=== PATIENT | male | born 1955 | race Caucasian/White ===

== ENCOUNTER 2020-01-19 11:16 | Outpatient (CLI) | payer MEDICARE, SELFPAY ==
--- NOTE | 2020-01-19 11:00 | XR_ITS ---
WS: [id number] PROCEDURE: XR chest 2V* [id number] CLINICAL INFORMATION: tobacco abuse COMPARISON: None. FINDINGS: Heart: Normal cardiac silhouette. Lungs: Moderate chronic emphysematous changes. Patchy micronodular infiltrate in right upper lobe wit h suggestion of cystic change or bronchiectasis. This can be further evaluated with CT. Lung bases ar e well aerated. Bones: Normal visualized bony structures. XR/XR chest 2V* [id number] IMPRESSION: Patchy micronodular infiltrate with cystic change or bronchiectasis in the righ t upper lobe. Recommend further evaluation with CT.
--- NOTE | 2020-01-19 11:30 | XR_ITS ---
WS: [id number] THORACIC SPINE TECHNIQUE: 3 views of the thoracic spine CLINICAL INFORMATION: back pain COMPARISON: None. FINDINGS: Mild thoracic curve convex left. Chronic anterior wedging in the mid thoracic spine. Osteopenia. No a cute appearing thoracic compression fractures. Grade 1 anterolisthesis C5 on C6 in the cervical spine . XR/XR thoracic spine 2V [id number] IMPRESSION: No acute thoracic spine findings.
== END 2020-01-19 11:17 | disposition home or self-care (01) ==
LOC: RADWPI 11:19
PROVIDERS: Family Provider Nurse Practitioner Family; PCP Nurse Practitioner Family; Visit Provider Nurse Practitioner Family
DX: R93.89 Abnormal findings on diagnostic imaging of other specified body structures (principal); M54.9 Dorsalgia, unspecified
CPT/HCPCS: 71046; 72070

== ENCOUNTER 2020-02-19 10:27 | Outpatient (CLI) | payer MEDICARE, SELFPAY ==
--- NOTE | 2020-02-19 14:11 | PFTS_ITS ---
Date of Study:02/19/20 Date of Dictation: MECHANICS: Forced vital capacity (FVC) is normal. Forced expiratory volume in one second (FEV1) is normal. FEV1/FVC is normal. FLOW VOLUME LOOP: Mild scooping. LUNG VOLUMES: Not performed DIFFUSING CAPACITY FOR CARBON MONOXIDE: Normal INTERPRETATION: The pulmonary function tests are normal. There is likely small airways disease as evidenced by scooping of the flow volume loop. Gas exchange (DLCO) is normal. MTDD
== END 2020-02-19 10:28 | disposition home or self-care (01) ==
LOC: RT 10:33
PROVIDERS: Family Provider Nurse Practitioner Family; PCP Nurse Practitioner Family; Visit Provider Internal Medicine Critical Care Medicine
DX: R91.8 Other nonspecific abnormal finding of lung field (principal)
CPT/HCPCS: 94010; 94729

== ENCOUNTER 2020-03-15 10:17 | Day surgery (SDC) | payer MEDICARE, SELFPAY ==
[2020-03-15] VITALS (7 sets, daily range): BP systolic 118–166; BP diastolic 56–82; PULSE 76–85; RESP 16–25; TEMP 36.2–36.6; O2SAT 94–99
[2020-03-15] MEDS: sodium chloride 0.9% 1,000 ML 30 ML IV (10:43)
[2020-03-15 10:44] LABS: Glucose Point of Care 119 mg/dL (70-110)
--- NOTE | 2020-03-15 11:07 | ANES.PREANE2 ---
Pre-Anesthetic Assessment Pre-Anesthetic Assessment: Height/Weight: Height 1.83 m Weight 83.915 kg Temp Pulse Resp BP Pulse Ox 97.8 F 79 18 166/82 99 03/15/20 10:33 03/15/20 10:33 03/15/20 10:33 03/15/20 10:33 03/15/20 10:33 Preop Diagnosis: Lung cancer Proposed Procedure: Operation Date: 03/15/20 12:00 Proposed Procedures p Ebus(Not Applicable) - Bipinna Borrero MD Last intake: Intake Last Liquid Date 03/14/20 Last Liquid Time 19:00 Last Solid Date 03/14/20 Last Solid Time 19:00 Social: Social History: Tobacco and No alcohol Exam: Pre-Anes Outpt Exam: alert, oriented x 3, clear to auscultation bilaterally and regular rate & rhythm Airway: Submandibular: WNL Cervical ROM: WNL MP: 2 Dentition: Full (dentures) History/ROS: No significant history except as noted Pulmonary: Comments: lung mass CV/HEM: CV/HEM: HTN : : None reported Hepatic: Hepatic: None reported GI: GI: GERD (occ) Metabolic: Metabolic: DM Musc/skel: Musc/skel: None reported Neuropsych: Neuropsych: None reported Anesthetic Plan: ASA status: 2 Anesthesia: Anesthesia Evaluation and General Risk of > 500 ml blood loss (7ml/kg in children): No Meds/Allergies Current Medications: Current Medications Generic Name Dose Route Start Last Admin Trade Name Freq PRN Reason Stop Dose Admin Sodium Chloride 1,000 mls @ 30 ml s/hr 03/15/20 09:15 03/15/20 10:43 Sodium Chloride 0.9% IV 03/16/20 09:14 30 mls/hr .Q24H RAJWINDER Administration PFSH Anesthesia PFSH: Medical History Diabetes type 2, controlled Essential hypertension Social History Smoking and tobacco status: current every day smoker cigarettes Packs smoked per day: 0.5 Years cigarettes smoked: 51 [ Other cigarette details: 1 PPD x 51 Year HX ] Quit status (tobacco): considering quitting Alcohol intake: never Lives independently: Yes Household members: significant other Marital status: Single Current occupational status: employed Current occupational exposures/hazards: No History of recent travel: No Current gender identity: Male Data Anesthesia Other Labs: Laboratory Results - last 48 hr 03/15/20 10:41 POC Glucose 119 Cardiac Studies: No Data to Display
--- NOTE | 2020-03-15 11:57 | W.PM.OPSUD ---
Surgery/Procedure H&P Update DATE OF PROCEDURE: March 15, 2020 DATE H&P PERFORMED: 03/07/20 H&P UPDATE INFORMATION: I have reviewed H&P completed within last 30 days, I have examined patient prior to procedure and No changes to prior documentation PREOP DIAGNOSIS: Lung cancer PRIMARY INDICATION FOR PROCEDURE: Lung cancer PLANNED PROCEDURE: Bronchoscopy with inspection of the airway, possible endobronchial and transbronchial biopsies, endobronchial sound guided transbronchial needle aspiration of lymph nodes. Operation Date: 03/15/20 12:00 Proposed Procedures p Ebus(Not Applicable) - Iqra Borrero MD
[2020-03-15] MEDS: lidocaine 1% INJ 20 mL XX (12:26)
--- NOTE | 2020-03-15 13:19 | SUR.OPER ---
EBUS BALLOON REMOVED AND INTACT
--- NOTE | 2020-03-15 13:23 | PM.OP ---
Operative Report Date of procedure: March 15, 2020 Pre-op Diagnosis: Lung cancer Post-op diagnosis: same Brief History: 64-year-old gentleman with suspected primary lung cancer coming in for bronchoscopic evaluation. Procedure: Name of the procedure: Bronchoscopy with inspection of the airway, endobronchial ultrasound-guided transbronchial needle aspiration of lymph nodes and control of bleeding. Indication: Metastatic lung cancer Anesthesia: General anesthesia. Local anesthesia: The olegario in the right and left mainstem bronchi were anesthetized with 1% lidocaine, 3 mL. Description of the procedure: The procedure was explained to the patient and the consent was obtained. The patient was brought to the OR. The patient underwent endotracheal intubation for general anesthesia. Following induction of general anesthesia, the bronchoscope was advanced through the ET tube. The lower trachea appeared to be normal. The olegario was sharp. The olegario, the right and left mainstem bronchi are anesthetized with 1% lidocaine. In a systematic manner bilateral bronchial tree was then examined. The bronchoscope was advanced into the left mainstem bronchus. There was no significant erythema or cobblestoning, mild mucus noted. The left upper lobe, lingula and left lower lobe bronchi were examined up to the third subsegmental level and no abnormalities were identified. The bronchoscope was then introduced into the right mainstem bronchus. The right upper lobe, right middle lobe and right lower lobe bronchi were examined up to the third subsegmental level and no abnormalities were identified. There was mild mucus throughout the airways. The endobronchial ultrasound was introduced through the ET tube. Right hilar lymphadenopathy was identified with the ultrasound. Fine-needle aspiration was performed from 10 R and station 7 lymph nodes. Samples: 1. The transbronchial fine needle aspiration of the aforementioned lymph node groups were sent for cytology. Complications: There was no immediate complications. The patient was extubated and brought to the PACU in stable condition.
--- NOTE | 2020-03-15 13:26 | SUR.PHASEI ---
1324 PATIENT TO PACU FROM OR. RR EVEN AND UNLABORED. DRY COUGH NOTED. SPO2 96% ON RA. PATIENT DENIES PAIN.
--- NOTE | 2020-03-15 13:43 | SUR.PHASEI ---
1340 PATIENT TO OPS. DENIES PAIN. NO DISTRESS. RR EVEN AND UNLABORED.
--- NOTE | 2020-03-24 13:13 | PTH.EBUS ---
Endobronchial Ultrasound Speicmen(s): Lymph node 10 R Gross: 1.5 ml red cloudy particles, fluid Preliminary Impression: Large atypical cells with cartilage. Material sent for cell block. - Specimen Information Pathologist: Florence Fierro Date: 03/15/20 Time Received: 12:45 Time Reported: 13:00 Pathology Specimen Reported to: Dr. Iqra Borrero
== END 2020-03-15 14:10 | disposition home or self-care (01) ==
PROVIDERS: PCP Nurse Practitioner Family; Visit Provider Internal Medicine Critical Care Medicine
PROC: BB4BZZZ Ultrasonography of Pleura (ICD-10-PCS; principal; 2020-03-15 12:00)
DX: C34.90 Malignant neoplasm of unspecified part of unspecified bronchus or lung (principal); I10 Essential (primary) hypertension; E11.9 Type 2 diabetes mellitus without complications; Z79.84 Long term (current) use of oral hypoglycemic drugs; F17.210 Nicotine dependence, cigarettes, uncomplicated; K21.9 Gastro-esophageal reflux disease without esophagitis
CPT/HCPCS: 12345; 31625; 31627; 36416; 80500; 82962; 88112; 88173; 88305; 88341; 88342; J2370; J3010; J7030

== ENCOUNTER 2020-03-29 11:43 | Outpatient (CLI) | payer MEDICARE, SELFPAY ==
--- NOTE | 2020-04-11 10:38 | ONC CON_ITS ---
Dr. Alfaro New Patient Note Patient: Malcolm Landrum Unit #: [id number]: 1955 Dicatated By: Joshua Alfaro M.D.Date of Visit: Mar 29, 2020 Onc MED New Patient/Consult Referring Physician: Olvin Aguilar Dr., M.D. Chief Complaint: Lung cancer. 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 He had presented with a 5 to 6-week history of nagging pain in his right lower anterior chest. The pain became severe enough that he had to quit working. X-rays of the thoracic spine were unrevealing, but chest x-ray showed a nodular consolidation within the right upper lung, thought possibly to be infectious. Further evaluation with chest CT showed a spiculated mass in the right upper lobe abutting the lateral pleural surface measuring 3 x 2.9 cm. There was some adjacent pleural tethering. There was no evidence of chest wall invasion. Also noted was a spiculated nodule in the left lower lobe abutting the lateral pleural surface measuring 1.9 x 1.5 cm. Also noted was an enlarged superior right hilar lymph node measuring 1.3 cm. There was no mediastinal lymphadenopathy noted. A right adrenal nodule measuring 1.4 cm showed low attenuation consistent with adenoma. No skeletal metastases were seen on that study. Further evaluation with PET/CT on 03/01/2020 showed an FDG avid lobular suprahilar mass extending to the lateral pleural margin in the right upper lobe, SUV 9.32, consistent with malignancy. A small nodule anterior to it showed SUV 2.3. A new pleural-based left lower lobe nodule was also FDG avid with SUV 10.08. A small suprahilar lymph node and a larger hilar node were both FDG avid with SUV 4.97 and 10.31 respectively. A small node along the anterior margin of the proximal right mainstem bronchus with SUV 5.15 and there was a maximum SUV in the left hilum of 3.17. A small precarinal lymph node had SUV 3.07. The right adrenal nodule appeared consistent with adenoma. Included portions of the skeleton showed several metastatic lesions including a lesion in the mid right femoral diaphysis with SUV 13.6 and a lesion in the posterior right iliac bone adjacent to the SI joint with SUV 9.57. Additional lesions were noted in the T4 and T9 vertebral bodies, and in the posterior medial aspect of the right eighth rib. The latter was noted to extend into contiguous soft tissue. On 03/15/2020 he underwent bronchoscopy/EBUS with transbronchial FNA biopsy of station 10R and station 7 lymph nodes. There were no endobronchial lesions identified. Pathology on the station 7 lymph node was benign. The station 10R lymph node showed non-small cell carcinoma with immunophenotype findings most consistent with squamous cell carcinoma. He is seen for further management. He says he is feeling pretty good generally, though the pain is significant enough to limit his activity. He is not getting much benefit with his current pain medication, which includes oxycodone 5/APAP 325 3 times a day. His ECOG score is 2. He has good appetite and his weight is stable. He does not have fever or night sweats. He reports having a little hacking cough, but he does not complain of shortness of breath. He has no GI or complaints. He currently is not having any other joint or bone pain. He does not complain of headache. He reports that he occasionally stumbles. He has no focal neurologic symptoms. Past Medical History: His medical history includes chronic obstructive pulmonary disease, diabetes type II, and hypertension. Past Surgical History: He underwent bronchoscopy/EBUS with transbronchial FNA biopsy of stations 10R and 7 lymph nodes on 03/15/2020. He has had no prior surgeries. Medications: amLODIPine Besylate 1 (5 mg) Tablet Oral daily, Endocet 1 (5-325 mg) Tablet Oral four times a day PRN, MetFORMIN HCl 1 (1000 mg) Tablet Oral b.i.d. Allergies: No Known Allergies. Social History: Mr. Landrum has a life partner. 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 He has a history of smoking for 51 years, previously 1 1/2 packs of cigarettes daily. He has cut down to 1 pack per day. He does not drink alcohol. Family History: Father of lung cancer at age 78. Mother with congestive heart failure at age 77. Two sisters are in good health. Review Of Symptoms: Constitutional - He has generally been feeling good, though his energy has recently decreased. He was working full-time has a licensed optician but he quit recently. He is able to do some light walking, but he is otherwise sedentary at home. His appetite is good and weight is stable. No fever, night sweats, or hot flashes. ECOG score is 2, Eyes - No change in vision, ENMT - No hearing loss or tinnitus. No sinus congestion/drainage. No mouth sores. No sore throat or difficulty swallowing, Hematologic/Lymphatic - He bruises easily, Respiratory - No shortness of breath. He has a cough, but no hemoptysis. He has been haiving pain in the right lower anterior chest area for the past 5-6 weeks. It is not pleuritic, Cardiovascular - No angina pain. No palpitations, Gastrointestinal - No nausea or vomiting. No heartburn or acid reflux. No diarrhea or constipation. No blood in the stool or black stools, Genitourinary (M) - No dysuria or hematuria. No urinary frequency. No urgency or incontinence, Musculoskeletal - No other joint or bone pain, Integumentary - No skin complications, Neurologic - No headaches. He has occasional episodes alteration in his gait. No numbness or tingling. No other focal neurologic symptoms, Psychiatric - No anxiety or depression. He has some difficulty sleeping. Vital Signs: Performed on Mar 29, 2020 11:40: 4, 24.82, 2.05 sq.m, 72 in (HIGH), 97 %, 107 /min (HIGH), 18 /min, 130/62 mm(hg), 98.2 F (LOW), and 183 lbs (LOW). Physical Examination: Constitutional - He appears to be in good general health, Eyes - Sclerae nonicteric. Conjunctivae clear, ENMT - No lesions noted in the oral cavity, Neck - No mass or thyromegaly, Hematologic/Lymphatic - No cervical, clavicular, or axillary adenopathy, Respiratory - Lungs sound clear with diminished air movement on the right, Cardiovascular - Heart rhythm is regular. There is no murmur, gallop, or rub noted, Abdomen - Soft and non-tender. Liver and spleen are not enlarged. There is no abdominal mass or ascites noted and there is no inguinal adenopathy, Back/Spine - There is no bony tenderness in the spine or in the rib cage, Extremities - No edema. Pedal pulses are palpable bilaterally, Integumentary - No rashes. No suspicious skin lesions noted, Neurologic - No focal neurologic deficits noted. Impression: 1. 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 By clinical evaluation, his disease appears to be stage IVB (T2c, N3, M1c) with multiple sites of bone involvement. 2. He is having significant pain in the right lower anterior chest area. In reviewing his imaging reports, I am really not certain where that pain is originating. 3. He underwent bronchoscopy/EBUS with transbronchial FNA biopsy of stations 7 and 10R lymph nodes on 03/15/2020. His other medical illnesses include: 4. Hypertension. 5. Type 2 diabetes. 6. COPD. 7. His imaging shows absent left kidney. Plan: The findings on the imaging studies and the pathology results were reviewed with the patient, and we discussed the clinical implications. He has non-small cell carcinoma, specifically squamous cell carcinoma, involving the upper lobe of the right lung. With PET/CT evidence of multiple sites of bone involvement his disease is stage IVB, and we discussed the fact that it is incurable. The mainstay of treatment will be some form of systemic therapy, most likely combined chemotherapy/immunotherapy or immunotherapy alone, depending on the PD-L1 status. Unfortunately, with a very limited biopsy specimen determining the PD-L1 expression may be problematic, but I will check with pathology to see whether an adequate specimen may be available for next generation sequencing or at least a PDL-L1 study. I will have him scheduled for an x-ray of the right femur to rule out any obvious lytic involvement which may require specific therapy. I also will review the PET/CT to see if we can localize where the chest wall pain may be originating. In the meantime, he will be given a prescription for immediate release oxycodone 15 mg to take 1 or 2 every 4 hours as needed. Signed By: Joshua Alfaro M.D. <<Signature on File>>
== END 2020-03-29 11:44 | disposition home or self-care (01) ==
LOC: ONCMED 11:43
PROVIDERS: PCP Nurse Practitioner Family; Visit Provider Internal Medicine Medical Oncology
DX: C34.11 Malignant neoplasm of upper lobe, right bronchus or lung (principal); C79.51 Secondary malignant neoplasm of bone; C77.1 Secondary and unspecified malignant neoplasm of intrathoracic lymph nodes; R07.89 Other chest pain; I10 Essential (primary) hypertension; E11.9 Type 2 diabetes mellitus without complications; J44.9 Chronic obstructive pulmonary disease, unspecified; F17.210 Nicotine dependence, cigarettes, uncomplicated; Z79.891 Long term (current) use of opiate analgesic
CPT/HCPCS: 99204

== ENCOUNTER 2020-04-25 14:16 | Outpatient (CLI) | payer MEDICARE, SELFPAY ==
[2020-04-25 14:50] VITALS: RESP 18; O2SAT 98
[2020-04-25] MEDS: morphine 4 mg/mL SDV 1 mL IV ×2 (14:50→15:57)
[2020-04-25 15:11] LABS: Basophils # 0.1 10^3/uL (0.0-0.1); Basophils % 1.1 %; Eosinophils # 0.3 10^3/uL (0.0-0.8); Eosinophils % 3.5 %; Hematocrit 39.9 % (42.0-52.0); Hemoglobin 13.3 g/dL (11.7-16.6); Lymphocytes # 1.9 10^3/uL (0.8-4.8); Lymphocytes % 26.2 %; Mean Corpuscular HGB Conc 33.3 g/dL (30.0-36.0); Mean Corpuscular Hemoglobin 29.8 pg (28.0-34.0); Mean Corpuscular Volume 89.3 fL (80-94); Mean Platelet Volume 9.4 fL (7.4-10.4); Monocytes # 0.5 10^3/uL (0.2-0.9); Monocytes % 6.8 %; Neutrophils # 4.49 10^3/uL (1.8-7.7); Nucleated Red Blood Cells % 0 %; Platelet Count 129 10^3/cmm (130-400); Red Blood Count 4.47 10^6/uL (4.1-5.3); Red Cell Distribution Width 13.8 % (12.1-15.1); White Blood Count 7.2 10^3/uL (4.0-10.0)
[2020-04-25 15:20] VITALS: RESP 18; O2SAT 98
[2020-04-25] MEDS: morphine 4 mg/mL SDV 1 mL SUBCUT (15:20)
[2020-04-25 15:31] LABS: Alanine Aminotransferase 13 U/L (0-41); Albumin Level 4.2 g/dL (3.5-5.2); Alkaline Phosphatase 94 IU/L (40-130); Aspartate Amino Transferase 22 U/L (0-40); Blood Urea Nitrogen 17 mg/dL (8-23); Calcium 9.1 mg/dL (8.5-10.5); Carbon Dioxide 24 mmol/L (22-29); Chloride 101 mmol/L (98-107); Glomerular Filtration Rate 112.8 mL/min (90-130); Glucose 95 mg/dL (65-115); Osmolality Calculated 284 mOsm/kg (285-295); Sodium 139 mmol/L (136-145); Thyroid Stimulating Hormone 0.99 uIU/mL (0.27-4.20); Total Bilirubin 0.5 mg/dL (0.15-1.2); Total Protein 7.2 g/dL (6.6-8.7)
[2020-04-25 15:57] VITALS: RESP 18; O2SAT 98
--- NOTE | 2020-05-01 14:32 | ONC FU_ITS ---
[facility] Patient Note Patient: Malcolm Landrum Unit #: [id number]: 1955 Dictated By: Joshua Alfaro M.D.Date of Visit: Apr 25, 2020 Onc MED Follow-Up/Prog Note Chief Complaint: Lung cancer. 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 He had presented with a 5 to 6-week history of nagging pain in his right lower anterior chest. The pain became severe enough that he had to quit working. X-rays of the thoracic spine were unrevealing, but chest x-ray showed a nodular consolidation within the right upper lung, thought possibly to be infectious. Further evaluation with chest CT showed a spiculated mass in the right upper lobe abutting the lateral pleural surface measuring 3 x 2.9 cm. There was some adjacent pleural tethering. There was no evidence of chest wall invasion. Also noted was a spiculated nodule in the left lower lobe abutting the lateral pleural surface measuring 1.9 x 1.5 cm. Also noted was an enlarged superior right hilar lymph node measuring 1.3 cm. There was no mediastinal lymphadenopathy noted. A right adrenal nodule measuring 1.4 cm showed low attenuation consistent with adenoma. No skeletal metastases were seen on that study. Further evaluation with PET/CT on 03/01/2020 showed an FDG avid lobular suprahilar mass extending to the lateral pleural margin in the right upper lobe, SUV 9.32, consistent with malignancy. A small nodule anterior to it showed SUV 2.3. A new pleural-based left lower lobe nodule was also FDG avid with SUV 10.08. A small suprahilar lymph node and a larger hilar node were both FDG avid with SUV 4.97 and 10.31 respectively. A small node along the anterior margin of the proximal right mainstem bronchus with SUV 5.15 and there was a maximum SUV in the left hilum of 3.17. A small precarinal lymph node had SUV 3.07. The right adrenal nodule appeared consistent with adenoma. Included portions of the skeleton showed several metastatic lesions including a lesion in the mid right femoral diaphysis with SUV 13.6 and a lesion in the posterior right iliac bone adjacent to the SI joint with SUV 9.57. Additional lesions were noted in the T4 and T9 vertebral bodies, and in the posterior medial aspect of the right eighth rib. The latter was noted to extend into contiguous soft tissue. Both the chest CT and the PET/CT also reported absence of the left kidney. On 03/15/2020 he underwent bronchoscopy/EBUS with transbronchial FNA biopsy of station 10R and station 7 lymph nodes. There were no endobronchial lesions identified. Pathology on the station 7 lymph node was benign. The station 10R lymph node showed non-small cell carcinoma with immunophenotype findings most consistent with squamous cell carcinoma. He was seen by Dr Alfaro for further management on March 29, 2020 . He says he was feeling pretty good generally,although his pain was significant enough to limit his activity. He was not getting much benefit with his current pain medication, which included oxycodone 5/APAP 325 3 times a day. March 29, 2020. His pain medication was changed to oxycodone 15 mg 1 every 4-6 as needed pain and his pain is better controlled now. He states he is taking less pain medication overall. We were able to obtain limited NexGen sequencing from and in the thoracic lymph node collected on March 15, 2020. This would obtained through [employer]. PDL 1 (22c3) IHC protein positive, TBS; 90%; PDL 1 (28???8) IHC protein positive/1+, 75%; out IHC protein negative/0. There was insufficient tumor to evaluate for EGFR however the Ross 1 was reported at negative BRAF V600E was also reported at negative mismatch repair status was indeterminate and TRK A/B/C was negative. Mr. Landrum has been offered treatment with immunotherapy with pembrolizumab. He is here today for follow-up and initiation of his first treatment. He states overall he is feeling better. His pain is better controlled. He is somewhat more active around the house. His energy is marginal but enough that he can get his ADLs done with intermittent rest. His appetite is good. He denies any fever or chills. He denies any new shortness of breath orthopnea. Denies any hemoptysis. He denies diarrhea or constipation. He states his bladder function is normal for him. He denies any chest pain palpitations or orthopnea. He denies any lower extremity edema or neuropathy. His ECOG is 1. Past Medical History: Chronic obstructive pulmonary disease Diabetes type II Hypertension Past Surgical History: Bronchoscopy/EBUS with transbronchial FNA biopsy of stations 10R and 7 lymph nodes in 2019 Allergies: No Known Allergies. Medications: amLODIPine Besylate 1 (5 mg) Tablet Oral daily Endocet 1 (5-325 mg) Tablet Oral four times a day PRN MetFORMIN HCl 1 (1000 mg) Tablet Oral b.i.d. Family History: Mr. Landrum's mother at age 77: coronary artery disease. Mr. Landrum's father at age 78: Cancer. Father of lung cancer at age 78. Mother with congestive heart failure at age 77. Two sisters are in good health. 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 He is a daily smoker who has smoked 1.0 pack/day for 49 years. He has no history of drinking. 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 He has a history of smoking for 51 years, previously 1 1/2 packs of cigarettes daily. He has cut down to 1 pack per day. He does not drink alcohol. Review Of Symptoms: Constitutional Denies fevers, chills, night sweats, excessive fatigue or weight loss. Allergic/Immunologic No reactions. Eyes Denies significant visual changes. No diplopia. No amaurosis. ENMT Denies changes in hearing, sore throat, mouth sores, difficulty or changes in swallowing ability, and/or sinus drainage. Endocrine No diabetes, thyroid disease or hormone replacement. Denies hot flashes or night sweats. Hematologic/Lymphatic Denies easy bruising or bleeding. The patient denies any tender or palpable lymph nodes. Respiratory Denies dyspnea on exertion, chest pain, cough or hemoptysis. Denies orthopnea. Cardiovascular Denies anginal chest pain, palpitations or orthopnea. Gastrointestinal Denies nausea, vomiting, diarrhea, GI bleeding, or constipation. Denies change in bowel habits and/or stool color, no heartburn or early satiety. Genitourinary (M) Denies hematuria, dysuria, increased frequency, urgency, hesitancy or incontinence. Musculoskeletal Denies joint pain, swelling or redness. No decreased range of motion. Integumentary Denies chronic rashes, inflammation, ulcerations or skin changes. Neurologic Denies headache, blurred vision, and no areas of focal weakness or numbness. Normal gait. No sensory problems. Psychiatric Denies insomnia, depression, janae or mood swings. Vital Signs: Performed on Apr 25, 2020 15:12 Height - 72.00 in Weight - 179.2 lbs (LOW) BSA - 2.03 sq.m BMI - 24.30 Temperature - 97.6 F (LOW) Pulse - 100 /min Respiration - 18 /min BP - 106/57 mm(hg) O2 Sat - 98 % Pain - 8,1 - No physically strenuous activity, but ambulatory and able to carry out light or sedentary work (e.g. office work, light house work). (ECOG) Physical Examination: Constitutional Alert, oriented, no acute distress. Skin pink, warm and dry. Head Normocephalic; atraumatic. Eyes Conjunctivae and sclerae are clear and without icterus. Pupils are reactive and equal. Neck Supple without masses or thyromegaly. No jugular venous distension. Hematologic/Lymphatic No petechiae or purpura. No tender or palpable lymph nodes in the cervical or supraclavicular areas. Respiratory Lungs are clear to auscultation without rhonchi or wheezing. Cardiovascular Regular rate and rhythm of heart without murmurs,clicks, gallops or rubs. Breasts Abdomen Non-tender, non-distended, no masses or ascites. Good bowel sounds noted in all quads. No guarding or rebound tenderness. No pulsatile masses. Back/Spine Non-tender to palpation. Extremities No visible deformities, no cyanosis, clubbing or edema. Musculoskeletal No tenderness or swelling, normal range of motion without obvious weakness. Integumentary No rashes or lesions. Neurologic No sensory or motor deficits, normal cerebellar function, normal gait. Psychiatric Alert and oriented times three. Coherent speech. Verbalizes understanding of our discussions today. Laboratory:Test performed on Apr 25, 2020 14:30 Sodium 139 mmol/L T4, Free 1.40 ng/dL TSH 0.99 uIU/mL Potassium 4.0 mmol/L Chloride 101 mmol/L CO2 24 mmol/L Anion Gap 18.0 BUN 17 mg/dL Creatinine 0.7 mg/dL Cr Clearance (Est) 119.3500 mL/min eGFR 112.8 mL/min Glucose 95 mg/dL Calcium 9.1 mg/dL Osmolality - Calculated 284 mOsm/kg Protein, Total 7.2 g/dL Albumin 4.2 g/dL Globulin 3.0 g/dL Bilirubin, Total 0.5 mg/dL ALT (SGPT) 13 U/L AST (SGOT) 22 U/L Alkaline Phosphatase 94 IU/L WBC 7.2 10 3/uL RBC 4.47 10 6/uL HGB 13.3 g/dL HCT 39.9 % MCV 89.3 fL MCH 29.8 pg MCHC 33.3 g/dL RDW 13.8 % Platelet Count 129 10 3/cmm MPV 9.4 fL Neutrophils 4.49 10 3/uL Lymphocytes 1.9 10 3/uL Monocytes 0.5 10 3/uL Eosinophils 0.3 10 3/uL Basophils 0.1 10 3/uL Neutrophil % 62.0 % Lymphocyte % 26.2 % Monocyte % 6.8 % Eosinophil % 3.5 % Basophils % 1.1 % NRBC % 0 % Impression: 1. 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 By clinical evaluation, his disease appears to be stage IVB (T2c, N3, M1c) with multiple sites of bone involvement. 2. He is having significant pain in the right lower anterior chest area. In reviewing his imaging reports, it is certain where that pain is originating. 3. He underwent bronchoscopy/EBUS with transbronchial FNA biopsy of stations 7 and 10R lymph nodes on 03/15/2020. His other medical illnesses include: 4. Hypertension. 5. Type 2 diabetes. 6. COPD. 7. His imaging shows absent left kidney. The findings on the imaging studies and the pathology results were reviewed with the patient per Dr Alfaro, and he discussed the clinical implications. He has non-small cell carcinoma, specifically squamous cell carcinoma, involving the upper lobe of the right lung. With PET/CT evidence of multiple sites of bone involvement his disease is stage IVB, and we discussed the fact that it is incurable. The mainstay of treatment will be some form of systemic therapy, most likely combined chemotherapy/immunotherapy or immunotherapy alone, depending on the PD-L1 status. Unfortunately, with a very limited biopsy specimen determining the PD-L1 expression may be problematic, but I will check with pathology to see whether an adequate specimen may be available for next generation sequencing or at least a PDL-L1 study. We were able to obtain limited NexGen sequencing from and in the thoracic lymph node collected on March 15, 2020. This would obtained through [facility]. PDL 1 (22c3) IHC protein positive, TBS; 90%; PDL 1 (28???8) IHC protein positive/1+, 75%; out IHC protein negative/0. There was insufficient tumor to evaluate for EGFR however the Ross 1 was reported at negative BRAF V600E was also reported at negative mismatch repair status was indeterminate and TRK A/B/C was negative. Mr Landrum ahs been offered treatment with pembrolizumab. He is here today for his first cycle. Plan: 1. Proceed with pembrolizumab 200 mg every 3 weeks schedule. 2. Premedication only as needed. 3. Continue OxyIR 15 mg as needed for pain. 4. Labs from today were reviewed in detail discussed with Mr. Landrum and a copy was given to him. WBC 7.2, hemoglobin 13.3, platelets 1 29,000 ANC is 4500. Potassium 4.0 creatinine 0.7 LFTs are normal alk phos is 94 TSH is 0.99. 5. We will plan to see him back in 3 weeks with repeat CBC CMP and TSH. 6. Mr. Landrum was instructed to contact us in the interim should questions or problems arise. 7. Specific side effects of immunotherapy discussed included but not limited to: ??? pneumonitis: new or worsening cough; chest pain; and shortness of breath. ??? Colitis: diarrhea or more bowel movements than usual; blood in stools or dark, tarry, sticky stools; and severe stomach area (abdomen) pain or tenderness. ??? hepatitis: jaundice; severe nausea or vomiting; pain on the right side of the abdomen; drowsiness; dark urine; bleeding or bruise more easily than normal. ??? nephritis and kidney failure: including decrease in the amount of urine; hematuria; lower extremity edema; and loss of appetite. ??? thyroid and pituitary changes that may include: headaches that will not go away or unusual headaches; extreme tiredness, weight gain or weight loss; changes in mood or behavior, such as decreased sex drive, irritability, or forgetfulness; dizziness or fainting; hair loss; feeling cold; constipation; and voice gets deeper. ???rash; changes in eyesight; severe or persistent muscle or joint pains; and severe muscle weakness. The majority of this visit (greater than 40 mintuesO was time spent face to face in review of plan of care, side effect identification and where to call for questions or concerns. Signed By: LUDA Joya, GARDENIA Alfaro M.D. <<Signature on File>>
== END 2020-04-25 14:17 | disposition home or self-care (01) ==
LOC: ONCMED 14:18
PROVIDERS: PCP Nurse Practitioner Family; Visit Provider Internal Medicine Medical Oncology
DX: C34.11 Malignant neoplasm of upper lobe, right bronchus or lung (principal); C79.51 Secondary malignant neoplasm of bone; C77.1 Secondary and unspecified malignant neoplasm of intrathoracic lymph nodes; Z79.891 Long term (current) use of opiate analgesic; F17.210 Nicotine dependence, cigarettes, uncomplicated; I10 Essential (primary) hypertension; E11.9 Type 2 diabetes mellitus without complications; J44.9 Chronic obstructive pulmonary disease, unspecified; Z79.899 Other long term (current) drug therapy
CPT/HCPCS: 80053; 84439; 84443; 85025; 96372; 96413; 99215; J2270; J7050; J9271

== ENCOUNTER 2020-05-23 05:30 | Outpatient (RCR) | payer MEDICARE, SELFPAY ==
[2020-05-16] MEDS: sodium chloride 0.9% (100 ml) 100 ML 75 ML (16:00)
[2020-05-16 16:05] VITALS: RESP 18; O2SAT 94
[2020-05-16] MEDS: morphine 4 mg/mL SDV 1 mL 10 MG IV (16:05)
--- NOTE | 2020-05-16 21:51 | ONC FU_ITS ---
[facility] Patient Note Patient: Malcolm Landrum Unit #: [id number]: 1955 Dictated By: Olvin JoyaDate of Visit: May 16, 2020 Onc MED Follow-Up/Prog Note Chief Complaint: Lung cancer. 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 He had presented with a 5 to 6-week history of nagging pain in his right lower anterior chest. The pain became severe enough that he had to quit working. X-rays of the thoracic spine were unrevealing, but chest x-ray showed a nodular consolidation within the right upper lung, thought possibly to be infectious. Further evaluation with chest CT showed a spiculated mass in the right upper lobe abutting the lateral pleural surface measuring 3 x 2.9 cm. There was some adjacent pleural tethering. There was no evidence of chest wall invasion. Also noted was a spiculated nodule in the left lower lobe abutting the lateral pleural surface measuring 1.9 x 1.5 cm. Also noted was an enlarged superior right hilar lymph node measuring 1.3 cm. There was no mediastinal lymphadenopathy noted. A right adrenal nodule measuring 1.4 cm showed low attenuation consistent with adenoma. No skeletal metastases were seen on that study. Further evaluation with PET/CT on 03/01/2020 showed an FDG avid lobular suprahilar mass extending to the lateral pleural margin in the right upper lobe, SUV 9.32, consistent with malignancy. A small nodule anterior to it showed SUV 2.3. A new pleural-based left lower lobe nodule was also FDG avid with SUV 10.08. A small suprahilar lymph node and a larger hilar node were both FDG avid with SUV 4.97 and 10.31 respectively. A small node along the anterior margin of the proximal right mainstem bronchus with SUV 5.15 and there was a maximum SUV in the left hilum of 3.17. A small precarinal lymph node had SUV 3.07. The right adrenal nodule appeared consistent with adenoma. Included portions of the skeleton showed several metastatic lesions including a lesion in the mid right femoral diaphysis with SUV 13.6 and a lesion in the posterior right iliac bone adjacent to the SI joint with SUV 9.57. Additional lesions were noted in the T4 and T9 vertebral bodies, and in the posterior medial aspect of the right eighth rib. The latter was noted to extend into contiguous soft tissue. Both the chest CT and the PET/CT also reported absence of the left kidney. On 03/15/2020 he underwent bronchoscopy/EBUS with transbronchial FNA biopsy of station 10R and station 7 lymph nodes. There were no endobronchial lesions identified. Pathology on the station 7 lymph node was benign. The station 10R lymph node showed non-small cell carcinoma with immunophenotype findings most consistent with squamous cell carcinoma. He was seen by Dr Alfaro for further management on March 29, 2020 . He says he was feeling pretty good generally,although his pain was significant enough to limit his activity. He was not getting much benefit with his current pain medication, which included oxycodone 5/APAP 325 3 times a day. March 29, 2020. His pain medication was changed to oxycodone 15 mg 1 every 4-6 as needed pain and his pain is better controlled now. He states he is taking less pain medication overall. We were able to obtain limited NexGen sequencing from and in the thoracic lymph node collected on March 15, 2020. This would obtained through [facility]. PDL 1 (22c3) IHC protein positive, TBS; 90%; PDL 1 (28???8) IHC protein positive/1+, 75%; out IHC protein negative/0. There was insufficient tumor to evaluate for EGFR however the Ross 1 was reported at negative BRAF V600E was also reported at negative mismatch repair status was indeterminate and TRK A/B/C was negative. Mr. Landrum has been offered treatment with immunotherapy with pembrolizumab. He is here today for follow-up. He began his first dose of pembrolizumab on April 25, 2020. He did have nausea vomiting with his first cycle that has resolved. He has taken Zofran once a day and he states that is controlling his nausea. He presents today with his significant other and his son. He has multiple concerns today including constipation, rib and back pain on the right side. He states he cannot lay flat to sleep due to the pain. He states it is a sharp poking type pain but it is not currently controlled with his current pain regimen. He is doing Duragesic 50 mcg daily along with MSIR 30 mg up to 4 times a day. He states he is having quite a bit of pain today and is already taking 3 of the immediate release morphine's with very minimal relief. He denies any new shortness of breath other than from the pain. His appetite is poor. His family states that he is not eating much at all and just has no interest in eating at this point. They are requesting appetite stimulant for him. Mr. Landrum states that he is in pain every day for the last several days. He states he does get some relief with the morphine but feels that he is taking it more often. He states he has taken senna 2 at night for his bowels and using Metamucil. He is still having some constipation. He also states he is had some intermittent gastritis but it is not every day. He denies any fever or chills. He has had no symptoms of infection. He denies any known COVID exposure, or symptoms. He has had no personal COVID testing. His ECOG is 2 although his activity remains very limited due to the pain. He has interest in getting out the house and doing more but is unable to due to the pain. Past Medical History: Chronic obstructive pulmonary disease Diabetes type II Hypertension Past Surgical History: Bronchoscopy/EBUS with transbronchial FNA biopsy of stations 10R and 7 lymph nodes in 2020 Allergies: No Known Allergies. Medications: amLODIPine Besylate 1 (5 mg) Tablet Oral daily Endocet 1 (5-325 mg) Tablet Oral four times a day PRN MetFORMIN HCl 1 (1000 mg) Tablet Oral b.i.d. Family History: Mr. Landrum's mother at age 77: coronary artery disease. Mr. Landrum's father at age 78: Cancer. Father of lung cancer at age 78. Mother with congestive heart failure at age 77. Two sisters are in good health. 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 He is a daily smoker who has smoked 1.0 pack/day for 49 years. He has no history of drinking. 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 He has a history of smoking for 51 years, previously 1 1/2 packs of cigarettes daily. He has cut down to 1 pack per day. He does not drink alcohol. Review Of Symptoms: Constitutional Denies fevers, chills, night sweats, excessive fatigue. Persistent weight loss due to poor appetite. Allergic/Immunologic No reactions. Eyes Denies significant visual changes. No diplopia. No amaurosis. ENMT Denies changes in hearing, sore throat, mouth sores, difficulty or changes in swallowing ability, and/or sinus drainage. Hematologic/Lymphatic Denies easy bruising or bleeding. The patient denies any tender or palpable lymph nodes. Respiratory Denies dyspnea on exertion, chest pain, cough or hemoptysis. Denies orthopnea. Cardiovascular Denies anginal chest pain, palpitations or orthopnea. Gastrointestinal Denies nausea, vomiting, diarrhea, GI bleeding, or constipation. Denies change in bowel habits and/or stool color, no heartburn or early satiety. Genitourinary (M) Denies hematuria, dysuria, increased frequency, urgency, hesitancy or incontinence. Musculoskeletal Denies joint pain, swelling or redness. No decreased range of motion. See above for chest wall/rib/spine pain report. Integumentary Denies chronic rashes, inflammation, ulcerations or skin changes. Neurologic Denies headache, blurred vision, and no areas of focal weakness or numbness. Normal gait. Psychiatric Denies insomnia, depression, janae or mood swings. Vital Signs: Performed on May 16, 2020 14:54 Height - 72.00 in Weight - 179.4 lbs (HIGH) BSA - 2.03 sq.m BMI - 24.33 Temperature - 98.7 F Pulse - 98 /min Respiration - 18 /min BP - 121/74 mm(hg) O2 Sat - 95 % (LOW) Pain - 8,2 - Ambulatory/capable of all self-care, unable to perform any work activities. Up and about more than 50% of waking hours. (ECOG) Physical Examination: Constitutional Alert, oriented, no acute distress. Skin pink, warm and dry. Head Normocephalic; atraumatic. Eyes Conjunctivae and sclerae are clear and without icterus. Pupils are reactive and equal. Neck Supple without masses or thyromegaly. No jugular venous distension. Hematologic/Lymphatic No petechiae or purpura. No tender or palpable lymph nodes in the cervical or supraclavicular areas. Respiratory Lungs are clear to auscultation without rhonchi or wheezing. Cardiovascular Regular rate and rhythm of heart without murmurs,clicks, gallops or rubs. Chest Chest is symmetric without chest wall deformities. It is noted that he has tenderness to light touch around the eighth rib and T8/T9 on the spine. He flinches with just light touch and obviously is very uncomfortable. There is no sign of any rash such as shingles. His chest wall and skin is unremarkable in appearance. He is obviously having pain. Back/Spine Non-tender to palpation. Extremities No visible deformities, no cyanosis, clubbing or edema. Musculoskeletal No tenderness or swelling, normal range of motion without obvious weakness. Integumentary No rashes or lesions. Neurologic No sensory or motor deficits, normal cerebellar function, normal gait. Psychiatric Alert and oriented times three. Coherent speech. Verbalizes understanding of our discussions today. Laboratory:Test performed on Apr 25, 2020 14:30 Sodium 139 mmol/L T4, Free 1.40 ng/dL TSH 0.99 uIU/mL Potassium 4.0 mmol/L Chloride 101 mmol/L CO2 24 mmol/L Anion Gap 18.0 BUN 17 mg/dL Creatinine 0.7 mg/dL Cr Clearance (Est) 119.3500 mL/min eGFR 112.8 mL/min Glucose 95 mg/dL Calcium 9.1 mg/dL Osmolality - Calculated 284 mOsm/kg Protein, Total 7.2 g/dL Albumin 4.2 g/dL Globulin 3.0 g/dL Bilirubin, Total 0.5 mg/dL ALT (SGPT) 13 U/L AST (SGOT) 22 U/L Alkaline Phosphatase 94 IU/L WBC 7.2 10 3/uL RBC 4.47 10 6/uL HGB 13.3 g/dL HCT 39.9 % MCV 89.3 fL MCH 29.8 pg MCHC 33.3 g/dL RDW 13.8 % Platelet Count 129 10 3/cmm MPV 9.4 fL Neutrophils 4.49 10 3/uL Lymphocytes 1.9 10 3/uL Monocytes 0.5 10 3/uL Eosinophils 0.3 10 3/uL Basophils 0.1 10 3/uL Neutrophil % 62.0 % Lymphocyte % 26.2 % Monocyte % 6.8 % Eosinophil % 3.5 % Basophils % 1.1 % NRBC % 0 % Impression: 1. 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 By clinical evaluation, his disease appears to be stage IVB (T2c, N3, M1c) with multiple sites of bone involvement. 2. He is having significant pain in the right lower anterior chest area. In reviewing his imaging reports, it is certain where that pain is originating. 3. He underwent bronchoscopy/EBUS with transbronchial FNA biopsy of stations 7 and 10R lymph nodes on 03/15/2020. His other medical illnesses include: 4. Hypertension. 5. Type 2 diabetes. 6. COPD. 7. His imaging shows absent left kidney. The findings on the imaging studies and the pathology results were reviewed with the patient per Dr Alfaro, and he discussed the clinical implications. He has non-small cell carcinoma, specifically squamous cell carcinoma, involving the upper lobe of the right lung. With PET/CT evidence of multiple sites of bone involvement his disease is stage IVB, and we discussed the fact that it is incurable. The mainstay of treatment will be some form of systemic therapy, most likely combined chemotherapy/immunotherapy or immunotherapy alone, depending on the PD-L1 status. Unfortunately, with a very limited biopsy specimen determining the PD-L1 expression may be problematic, but I will check with pathology to see whether an adequate specimen may be available for next generation sequencing or at least a PDL-L1 study. We were able to obtain limited NexGen sequencing from and in the thoracic lymph node collected on March 15, 2020. This would obtained through [facility]. PDL 1 (22c3) IHC protein positive, TBS; 90%; PDL 1 (28???8) IHC protein positive/1+, 75%; out IHC protein negative/0. There was insufficient tumor to evaluate for EGFR however the Ross 1 was reported at negative BRAF V600E was also reported at negative mismatch repair status was indeterminate and TRK A/B/C was negative. Mr Landrum ahs been offered treatment with pembrolizumab. He began his first cycle on 04/25/2020. He had nausea/vomiting with the first treatment but otherwise tolerated it well. He is having increased pain on the right rib and spine area. He will have medication adjustment and referral to radiation oncology. He will need Xgeva for bone mets but we will delay that today due to pain level. Plan: 1. Proceed with pembrolizumab 200 mg every 3 weeks schedule. 2. Premedication today for nausea as he had nausea/vomiting with cycle 1. Zofran 8 mg, dexamethasone 6 mg and Pepcid 20 mg 3. Duragesic: increase to 75 mcg from 50 mcg and continue MSIR 30mg as needed for pain. May use topical lidocaine patch to right rib/back area. We could add gabapentin and may need to in the future but for now will increase patch and have him see Dr Ray in radiation oncology for possible pallative radiation therapy for pain. I have requested that he have IV morphine today while in the clinic as his last dose was at 1 pm today and he still has to ride him after treatment. 4. increase senna-s to 2 BID. Lactulose prn. 5. Referral to Dr Ray in radiation oncology [facility] for suspected T9-right 8th rib pain. 6. We will plan to see him back in 3 weeks with repeat CBC CMP and TSH. 7. Will start PA process for Marinol for appetite and nausea. May take Tums/Rolaids as needed for heartburn. 8. Mr. Landrum was instructed to contact us in the interim should questions or problems arise. 9. Specific side effects of immunotherapy discussed included but not limited to: ??? pneumonitis: new or worsening cough; chest pain; and shortness of breath. ??? Colitis: diarrhea or more bowel movements than usual; blood in stools or dark, tarry, sticky stools; and severe stomach area (abdomen) pain or tenderness. ??? hepatitis: jaundice; severe nausea or vomiting; pain on the right side of the abdomen; drowsiness; dark urine; bleeding or bruise more easily than normal. ??? nephritis and kidney failure: including decrease in the amount of urine; hematuria; lower extremity edema; and loss of appetite. ??? thyroid and pituitary changes that may include: headaches that will not go away or unusual headaches; extreme tiredness, weight gain or weight loss; changes in mood or behavior, such as decreased sex drive, irritability, or forgetfulness; dizziness or fainting; hair loss; feeling cold; constipation; and voice gets deeper. ???rash; changes in eyesight; severe or persistent muscle or joint pains; and severe muscle weakness. The majority of this visit was time spent face to face in review of plan of care, medication changes and answering questions. Signed By: Olvin Joya-, [facility] Joshua Alfaro MD <<Signature on File>>
--- NOTE | 2020-05-18 20:08 | N.ONRAD NP_ITS ---
Radiation Oncology New Patient Visit Patient: Malcolm Landrum MR#: [id number] : 1955> Age: 64> Sex: Male> Dictated by: Dr. Krish Ray Date of Service: 05/18/2020 Referring Physician(s) : Dr Alfaro Diagnosis: C79.51 - secondary malignant neoplasm of bone, Diagnosed 04/25/2020 (active) and C34.11 - malignant neoplasm of upper lobe, right bronchus or lung, Diagnosed 03/29/2020 (active), stage ivb, t1c, n3, m1c. Radiotherapy to date: Summary > No prior radiation therapy. Chief Complaint / History of Present Illness: The patient is a 64-year-old male with a [id number] history of smoking who presented with a 6-week history of right lower anterior chest pain. He was subsequently diagnosed with T2c N3 M1c squamous of carcinoma involving the right upper lobe of lung. Pertinent radiographic work-up included a CT of the chest and subsequent PET/CT. CT of the chest (12/31/2019) revealed: -) a 3 cm right upper lobe mass with contiguous pleural tethering; -) A 1.9 cm spiculated nodule in the contralateral left lower lobe abutting the left lateral pleural surface; -) A 1.5 cm right adrenal nodule consistent with adenoma. PET/CT (03/01/2020) revealed FDG avidity within: -) A 4.6 x 2.4 cm mass in the right upper lobe of the lung extending to the lateral pleural margin; -) A 1.6 cm pleural mass immediately posterior to the right anterolateral second; -) A 2 cm contralateral pleural-based nodule along the lateral aspect of the left lower lobe; -) Right hilar adenopathy; -) Mediastinal adenopathy; and -) Osseous metastasis involving the right femoral diaphysis, posterior right iliac bone measuring 3.5 x 2.6 cm, T9 vertebral body, T4 vertebral body, and posterior medial aspect of the right eighth rib with soft tissue extension measuring 6.3 x 3.7 cm. On 03/15/2020 the patient underwent bronchoscopy/MEET with transbronchial fine-needle aspiration biopsy of station 10 R and station 7 lymph nodes. Pathology from a 10 R lymph node revealed non-small cell lung carcinoma most consistent with squamous cell, and the subcarinal lymph node was benign. Next generation sequencing revealed PDL 1 positive, ROS 1 negative , BRAF negative, TRK negative, mismatch repair indeterminant, and insufficient material for EGFR analysis. The patient was then treated with pembrolizumab and subsequently referred to radiation oncology to palliate his T9 vertebral body and eighth rib disease. In consultation today, the patient is on a 75 mcg fentanyl patch, plus 30 mg immediate morphine for breakthrough pain. The patient reports that his bowels are functioning adequately. The patient reports pain in his right posterior back, right upper anterior chest wall, and right mid lateral chest wall. He reports no right hip pain, no bone pain, and no progressive shortness of breath or hemoptysis. Current Medications: AmLODIPine Besylate, duragesic-25, duragesic-50, endocet, keytruda, lactulose, metFORMIN HCl, morphine Sulfate, ondansetron HCl, oxyCODONE HCl. Allergies: No Known Allergies Medical History: - Chronic obstructive pulmonary disease, - diabetes type II, - hypertension. No history of collagen vascular disease. No previous radiation therapy. Surgical History: Bronchoscopy/EBUS with transbronchial FNA biopsy of stations 10R and 7 lymph nodes on 03/15/2020. Family History: Father is at age 78 having experienced Cancer. Mother is at age 77 having experienced coronary artery disease. Father of lung cancer at age 78. Mother with congestive heart failure at age 77. Two sisters are in good health. Social History: Last screened on 04/25/2020 - Current every day smoker 1.0 pack/day for 49 years (49 pack years). Last screened on 04/25/2020 - Never drank. Current Complaints / Review of Systems: Constitutional - Complains of a poor appetite. Complains of moderate fatigue. Complains of change in weight in which he has lost about 15 lbs. since March 2020. Denies fever and night sweats. Eyes - Denies blurred vision and double vision. ENMT - Complains of altered taste. Denies dysphagia, ear pain, mouth dryness, stomatitis and tinnitus. Has hoarseness to the voice in the past week. Neck - Denies neck pain. Integumentary - Denies rash. Cardiovascular - Denies arrhythmias, chest pain and edema. Respiratory - Complains of a mild cough which is productive and the color of the sputum white. Complains of wheezing occasionally. Denies dyspnea and hemoptysis. Gastrointestinal - Complains of persistent constipation. Complains of satiety. Denies abdominal pain, diarrhea, heartburn / dyspepsia, melena / GI bleeding, nausea and vomiting. Genitourinary (M) - Denies dysuria, frequency, nocturia and urgency. Musculoskeletal - Complains of bone pain in the middle to the lower back. Denies joint pain and muscle weakness. Neurologic - Complains of intermittent dizziness. Denies abnormal gait and headaches. Endocrine - Complains of Type 2 diabetes. Denies thyroid disease. Hematologic/Lymphatic - Denies tender or enlarged lymph nodes.. Vital Signs: Performed on 05/18/2020 3:33 PM BMI - 22.894 kg/m2, Height - 72.00 in, Weight - 168.8 lbs, Temperature - 98.8 f, Pulse - 90, Respiration - 20, O2 Sat - 96 %, Pain - 7 and BP - 102/ 65 mm(hg). Physical Exam: GENERAL:??? The patient is alert, and in no acute distress. HEENT:??? Head is normocephalic. Face is symmetric. External ocular movements are intact. Sclera and conjunctivae are non erythematous. NECK:??? Trachea is midline.??? Thyroid is not enlarged by palpation.??? LYMPH NODES:??? There is no cervical or supraclavicular adenopathy bilaterally. LUNGS:??? Clear to auscultation bilaterally. Respiratory movement is unlabored. The patient has tenderness to mild palpation of the mid to low thoracic spine and right upper anterior chest wall. HEART:??? Regular rate and rhythm. EXTREMITIES:??? No deformities. NEUROLOGIC:??? Gait and station are normal.??? The patient is well coordinated and strength is equal bilaterally. FINANCIAL SALES ASSOCIATE:??? Cranial nerves II-XII are intact and without focal deficits.??? Psych: Affect is normal. Skin: Cursory review of the skin reveals no obvious lesions concerning for malignancy. Pathology: Primary, c79.51 - secondary malignant neoplasm of bone, Diagnosed 04/25/2020 (active), Primary, c34.11 - malignant neoplasm of upper lobe, right bronchus or lung, Diagnosed 03/29/2020 (active) stage ivb, t1c, n3, m1c and Secondary, d69.6 - thrombocytopenia, unspecified, Diagnosed 11/10/2015 (active). Lab: Test performed on 04/25/2020 2:30 PM HCT - 39.9 % (low), Platelet Count - 129 10 3/cmm (low) and Osmolality - Calculated - 284 mosm/kg (low). Imaging: See HPI Impression: The patient is a 64-year-old male with a new diagnosis of T2c N3 M1c squamous cell carcinoma likely originating in the right upper lobe of lung. His disease burden includes: -) A 4.6 x 2.4 cm mass in the right upper lobe of the lung extending to the lateral pleural margin; -) A 1.6 cm pleural mass immediately posterior to the right anterolateral second rib; -) A 2 cm contralateral pleural-based nodule along the lateral aspect of the left lower lobe; -) Right hilar adenopathy; -) Mediastinal adenopathy; and -) Osseous metastasis involving the right femoral diaphysis, posterior right iliac bone measuring 3.5 x 2.6 cm, T9 vertebral body, T4 vertebral body, and posterior medial aspect of the right eighth rib with soft tissue extension measuring 6.3 x 3.7 cm. The patient is most symptomatic with respect to his T9 vertebral body and right posterior eighth rib. The patient also reports pain most likely emanating from a pleural based mass posterior to the right anterolateral second rib. The patient has been initiated on immunotherapy. I offered the patient palliative radiation therapy to a total dose of 30 Gy in 10 fractions to his T9 vertebral body, right posterior eighth rib, in plane right hilar adenopathy, and the pleural-based mass posterior to the right anterolateral second rib. I also recommend considering an MRI of the brain, MRI of the C spine, T-spine, and L-spine to complete diagnostic work-up. I discussed with the patient that he is also at risk for a pathologic fracture involving the spine, or right femur. I defer to medical oncology's opinion regarding bisphosphonate therapy as clinically appropriate. Plan: We will begin palliative radiation therapy planning next Saturday, and at that time we will discuss the appropriateness of further work-up inclusive of MRI scans, and have a discussion regarding prognosis. Signed by: 05/18/2020 8:06:34 PM <<Signature on File>> Time spent with patient: CPT Code: CPT Code:
--- NOTE | 2020-05-23 | CT_ITS ---
Radiation Therapy Planning CT images; total exam DLP: 397.45 mGy-cm MTDD
== END 2020-06-11 23:59 | disposition home or self-care (01) ==
LOC: ONCMED 05:30
PROVIDERS: PCP Nurse Practitioner Family; Visit Provider Radiology Radiation Oncology
DX: Z51.12 Encounter for antineoplastic immunotherapy (principal); Z51.0 Encounter for antineoplastic radiation therapy; C34.11 Malignant neoplasm of upper lobe, right bronchus or lung; C79.51 Secondary malignant neoplasm of bone; D69.6 Thrombocytopenia, unspecified; I10 Essential (primary) hypertension; E11.9 Type 2 diabetes mellitus without complications; J44.9 Chronic obstructive pulmonary disease, unspecified; Z90.5 Acquired absence of kidney; Z79.899 Other long term (current) drug therapy
CPT/HCPCS: 77334; 96367; 96375; 96413; 99214; 99215; J1100; J2270; J2405; J3490; J7050; J9271